=== PATIENT | female | born 1950 | race Caucasian/White ===

== ENCOUNTER 2017-06-19 10:09 | Emergency (ER) | payer MEDICARE ==
[2017-06-19] MEDS: PROPARACAINE HCL 0.5% OPHT SOLN 15 ML BTL EACH EYE (10:27)
== END 2017-06-19 11:04 | disposition home or self-care (01) ==
LOC: PHEFT 10:09
DX: T15.91XA Foreign body on external eye, part unspecified, right eye, initial encounter (principal); F41.9 Anxiety disorder, unspecified; J45.909 Unspecified asthma, uncomplicated; F32.9 Major depressive disorder, single episode, unspecified; J44.9 Chronic obstructive pulmonary disease, unspecified; E11.9 Type 2 diabetes mellitus without complications; I10 Essential (primary) hypertension; K21.9 Gastro-esophageal reflux disease without esophagitis; Z79.899 Other long term (current) drug therapy
CPT/HCPCS: 99283